=== PATIENT | female | born 1960 | race Caucasian/White ===

== ENCOUNTER 2017-03-05 11:27 | Day surgery (SDC) | payer OTHER ==
[2017-03-05 11:59] VITALS: TEMP 98.2
[2017-03-05] MEDS ORDERED: NS 500 ML IV SCH (12:00)
[2017-03-05] MEDS ORDERED: LIDOCAINE 1% 2 ML INJ ID PRN (12:00)
[2017-03-05] MEDS ORDERED: LIDOCAINE 1% 2 ML INJ ONE (12:02)
--- NOTE | 2017-03-05 12:53 | PDGENHP ---
History & Physical Short Chief Complaint: family h/o CRC History of Present Illness: See cc Pertinent Past, Social, Family History: See cc. Relevant Physical Exam: No abnormalities Cardiorespiratory Assessment: Normal
[2017-03-05] MEDS ORDERED: fentaNYL 100 MCG/2 ML INJ ONE (13:05)
[2017-03-05] MEDS ORDERED: MIDAZOLAM 2 MG/2 ML VIAL ONE (13:05)
--- NOTE | 2017-03-05 13:26 | POSTOPPROG ---
Post Op Note Date of Operation: 03/05/17 Surgeon: Néstor Oliveira Anesthesia: IV Sedation Pre-op Diagnosis: family h/o CRC Post-op Diagnosis: diverticulosis Inf/Abcess present in the surg proc area at time of surgery?: No
[2017-03-05 13:40] VITALS: O2SAT 94
--- NOTE | 2017-03-05 13:54 | PDPROPOC ---
Sedation Plan of Care ASA Classification: ASA 1 Mallampati Score: Class 1 332 Rule: 332
[2017-03-05 14:00] VITALS: BP 102/70; PULSE 69; RESP 12
--- NOTE | 2017-03-05 17:10 | GPN ---
[f rep st] PROCEDURE NOTE PROCEDURE PERFORMED: Colonoscopy. INDICATION: The patient is a 57-year-old female with family history of colon cancer, who presents f or vigilant colon cancer screening. PROCEDURE: After proper consent was obtained, patient placed in left lateral decubitus position, re ceived 8 mg intravenous Versed, 100 mcg intravenous fentanyl. The video colonoscope was introduced through the anus and rectum, up left colon, across the transverse colon, then right colon to the cec um. FINDINGS: 1. Mild left-sided diverticulosis. 2. No polyps, tumors, or other lesions noted. At this point, instrument was removed. Patient tolerated the procedure well, was returned to the re covery room in stable condition. RECOMMENDATIONS: The patient's next colonoscopy should be in 5 years' time. /[id number]/MODL
== END 2017-03-05 14:07 | disposition home or self-care (01) ==
LOC: FSGY 11:27
PROVIDERS: ATTEND Internal Medicine Gastroenterology
PROC: 0DJD8ZZ Inspection of Lower Intestinal Tract, Via Natural or Artificial Opening Endoscopic (ICD-10-PCS; principal; 2017-03-05 13:00)
DX: Z12.11 Encounter for screening for malignant neoplasm of colon (principal); K57.30 Diverticulosis of large intestine without perforation or abscess without bleeding; E78.5 Hyperlipidemia, unspecified; Z80.0 Family history of malignant neoplasm of digestive organs
CPT/HCPCS: J2250; J3010

== ENCOUNTER → 2017-04-22 | Outpatient (CLI) | payer OTHER | LOC: FIMAGING 13:57 | PROVIDERS: ATTEND Internal Medicine | DX: Z12.31 Encounter for screening mammogram for malignant neoplasm of breast (principal) | CPT/HCPCS: G0202 ==

== ENCOUNTER → 2018-06-09 | Outpatient (CLI) | payer OTHER | LOC: FIMAGING 08:22 | PROVIDERS: ATTEND Internal Medicine | DX: Z12.31 Encounter for screening mammogram for malignant neoplasm of breast (principal) ==